=== PATIENT | female | born 1985 ===

== ENCOUNTER 2020-09-04 15:25 | Emergency (ER) | payer OTHER | END 2020-09-04 18:13 | disposition left against medical advice (07) | LOC: ER 15:26 | DX: S41.119A Laceration without foreign body of unspecified upper arm, initial encounter (principal); Z53.21 Procedure and treatment not carried out due to patient leaving prior to being seen by health care provider; X58.XXXA Exposure to other specified factors, initial encounter; Y93.9 Activity, unspecified; Y92.9 Unspecified place or not applicable; Y99.9 Unspecified external cause status ==